=== PATIENT | male | born 1990 | race Caucasian/White ===

== ENCOUNTER 2019-03-31 06:21 | Emergency (ER) | payer OTHER ==
[~2019-03-31] VITALS: Ht 185.4 cm; Wt 70.5 kg
[2019-03-31 06:26] VITALS: BP 122/72; TEMP 98.1
[2019-03-31] MEDS ORDERED: ZOFRAN ODT4 MG PO (07:57)
[2019-03-31 08:44] VITALS: PULSE 77
== END 2019-03-31 08:48 | disposition home or self-care (01) ==
LOC: COL.ER 06:21
DX: K29.20 Alcoholic gastritis without bleeding (principal); E86.0 Dehydration
CPT/HCPCS: J2550; J7030